=== PATIENT | male | born 1950 | race African-American/Black ===

== ENCOUNTER 2022-08-18 11:45 | Inpatient (IN) | payer MEDICARE ==
[2022-08-18 12:46] LABS: #Eosinphils 0.1 thou/uL (0.0-0.7); #Lymphocytes 1.6 thou/uL (1.20-3.40); #Monocytes 0.9 thou/uL (0.11-0.59); #Neutrophils 4.9 thou/uL (1.40-6.50); %Basophils 0.2 % (0.0-1.0); %Eosinophils 1.7 % (0.0-10.0); %Lymphocytes 21.1 % (21.0-51.0); %Monocytes 12.4 % (0.0-10.0); %Neutrophils 64.8 % (42.0-75.0); Hemoglobin 14.3 g/dL (14.0-18.0); Mean Corpuscular HGB CONC 31.8 g/dL (32.0-36.0); Mean Corpuscular Hemoglobin 29.6 pg (27.0-31.0); Mean Corpuscular Volume 93.2 fl (78.0-98.0); Mean Platelet Volume 8.1 fL (7.4-10.4); Platelet Count 168 10x3/uL (130-400); RBC Distribution Width 12.1 % (11.5-14.5); Red Blood Cell (RBC) Count 4.84 mill/uL (4.70-6.10); White Blood Cell (WBC) Count 7.6 10x3/uL (4.8-10.8)
[2022-08-18 13:25] LABS: ALT (SGPT) 17 U/L (8-55); AST (SGOT) 21 U/L (5-34); Albumin 3.8 g/dL (3.4-4.8); Alkaline Phosphatase 78 U/L (40-110); Anion Gap 11 mmol/L (10-20); BUN (Urea Nitrogen) 26 mg/dL (8.4-25.7); Bilirubin, Total 0.6 mg/dL (0.2-1.2); Calc. Creatinine Clearance 0 mL/min (70-130); Calcium 10.6 mg/dL (7.8-10.44); Carbon Dioxide 25 mmol/L (23-31); Chloride 104 mmol/L (98-107); Estimated GFR 34; Globulin 3.7 g/dL (2.4-3.5); Glucose 108 mg/dL (80-115); Lipase 120 U/L (8-78); Potassium 4.9 mmol/L (3.5-5.1); Protein, Total 7.5 g/dL (5.8-8.1); Sodium 135 mmol/L (136-145)
[2022-08-18] MEDS ORDERED: Fentanyl 100 MCG/2 ML VIAL ONE (14:49)
[2022-08-18] MEDS ORDERED: Ondansetron PF 4 MG/2 ML Vial ONE (14:49)
[2022-08-18] MEDS ORDERED: Cefepime 2 GM VIAL ONE (15:13)
[2022-08-18] MEDS ORDERED: Vancomycin 1 GM/200 ML (FROZEN) BAG ONE (16:07)
[2022-08-18 16:56] LABS: Magnesium 1.9 mg/dL (1.6-2.6); Phosphorus 2.5 mg/dL (2.3-4.7)
[2022-08-18] MEDS: Famotidine 20 MG TAB PO SCH (20:08)
[2022-08-18] MEDS: cloNIDine 0.1 MG TAB PO SCH (20:08)
[2022-08-18] MEDS: Lactated Ringer's 1,000 ML IV SCH (20:08)
[2022-08-18] MEDS: Heparin 5,000 UNITS/ML VIAL SC SCH (20:09)
[2022-08-18 20:44] VITALS: BMI 39.7
[2022-08-18] MEDS ORDERED: cloNIDine 0.1 MG TAB PO SCH (21:00)
[2022-08-18] MEDS ORDERED: Vancomycin 1 GM in Premix Bag 1 BAG IVPB SCH (21:30)
[2022-08-18] MEDS ORDERED: Sodium Chloride 0.65% Nasal 44 ML BOT EA NARE PRN (22:26)
[2022-08-18] MEDS ORDERED: Ondansetron PF 4 MG/2 ML Vial IVP PRN (22:35)
[2022-08-18] MEDS ORDERED: Ondansetron ODT 4 MG TAB PO PRN (22:35)
[2022-08-18] MEDS ORDERED: Ondansetron PF 4 MG/2 ML Vial IVP SCH (22:45)
[2022-08-18] MEDS: Loratadine 10 MG TAB PO PRN (22:45)
[2022-08-18] MEDS: Morphine 2 MG/ML VIAL SLOW IVP PRN (22:48)
[2022-08-19] MEDS: Cefepime 1 GM in Sodium Chloride 0.9% 100 ML IVPB SCH ×2 (02:46→14:25)
[2022-08-19] MEDS: Lactated Ringer's 1,000 ML IV SCH ×3 (02:46→14:28)
[2022-08-19 04:08] LABS: Creatinine, Urine 54.17 mg/dL (63-166)
[2022-08-19 06:33] LABS: #Eosinphils 0.1 thou/uL (0.0-0.7); #Lymphocytes 1.7 thou/uL (1.20-3.40); #Monocytes 0.9 thou/uL (0.11-0.59); #Neutrophils 3.7 thou/uL (1.40-6.50); %Basophils 0.4 % (0.0-1.0); %Eosinophils 1.8 % (0.0-10.0); %Monocytes 14.5 % (0.0-10.0); %Neutrophils 57.3 % (42.0-75.0); Hemoglobin 13.5 g/dL (14.0-18.0); Mean Corpuscular HGB CONC 32.2 g/dL (32.0-36.0); Mean Corpuscular Hemoglobin 30.1 pg (27.0-31.0); Mean Corpuscular Volume 93.7 fl (78.0-98.0); Mean Platelet Volume 7.8 fL (7.4-10.4); Platelet Count 153 10x3/uL (130-400); White Blood Cell (WBC) Count 6.4 10x3/uL (4.8-10.8)
[2022-08-19 06:38] LABS: Hemoglobin A1c 6.2 % (4.0-6.0)
[2022-08-19 06:57] LABS: ALT (SGPT) 16 U/L (8-55); AST (SGOT) 24 U/L (5-34); Albumin 3.3 g/dL (3.4-4.8); Alkaline Phosphatase 70 U/L (40-110); Anion Gap 10 mmol/L (10-20); BUN (Urea Nitrogen) 20 mg/dL (8.4-25.7); Bilirubin, Total 0.7 mg/dL (0.2-1.2); Calc. Creatinine Clearance 71 mL/min (70-130); Calcium 9.9 mg/dL (7.8-10.44); Carbon Dioxide 24 mmol/L (23-31); Cardiac Risk 2.9 (Less than 4.5); Chloride 106 mmol/L (98-107); Cholesterol 89 mg/dl (< 200 Desired); Estimated GFR 40; Globulin 3.7 g/dL (2.4-3.5); Glucose 90 mg/dL (80-115); HDL Cholesterol 31 mg/dL (>60 Neg Risk); LDL Cholesterol, Calculated 46 mg/dL; Lipase 36 U/L (8-78); Potassium 4.4 mmol/L (3.5-5.1); Sodium 136 mmol/L (136-145); Triglycerides 62 mg/dL (Less than 150)
[2022-08-19] MEDS: Carvedilol 25 MG TAB PO SCH (08:48)
[2022-08-19] MEDS: Amlodipine 10 MG TAB PO SCH (08:48)
[2022-08-19] MEDS: Heparin 5,000 UNITS/ML VIAL SC SCH ×3 (08:49→21:12)
[2022-08-19] MEDS: cloNIDine 0.1 MG TAB PO SCH ×2 (08:49→21:11)
[2022-08-19] MEDS: Famotidine 20 MG TAB PO SCH (21:11)
[2022-08-19] MEDS: Loratadine 10 MG TAB PO PRN (21:11)
[2022-08-19] MEDS: VANCOMYCIN 1.75 GM/500 ML BAG 1.75 GM in Premix Bag 1 BAG IVPB SCH (21:12)
[2022-08-19] MEDS: Morphine 2 MG/ML VIAL SLOW IVP PRN (21:19)
[2022-08-20 00:14] LABS: Bacteria/HPF None Seen HPF (None Seen); Bilirubin Negative (Negative); Blood, Urine Negative (Negative); CAUTI Indications for Culture Pelvic or flank pain; Clarity Clear (Clear); Glucose, Urine (Dipstick) Normal (Negative); Ketone, Urine Negative (Negative); Leukocyte Negative Leu/uL (Negative); Nitrite Negative (Negative); Protein, Urine (Dipstick) Negative (Neg-Trace); RBC/HPF 0-3 HPF (0-3); Specific Gravity, Urine 1.011 (1.002-1.036); Squamous Epithelial 0-3 HPF (0-3); Urobilinogen Normal mg/dL (Less than 2); WBC/HPF 0-3 HPF (0-3); pH, Urine 5.5 (5.0-9.0)
[2022-08-20 00:16] LABS: Urine Culture Reflex No No
[2022-08-20] MEDS: Cefepime 1 GM in Sodium Chloride 0.9% 100 ML IVPB SCH ×2 (02:05→15:09)
[2022-08-20] MEDS: Lactated Ringer's 1,000 ML IV SCH ×2 (04:52→08:04)
[2022-08-20 07:33] LABS: Hemoglobin 13.6 g/dL (14.0-18.0); Mean Corpuscular HGB CONC 32.3 g/dL (32.0-36.0); Mean Corpuscular Hemoglobin 30.4 pg (27.0-31.0); Mean Corpuscular Volume 94.3 fl (78.0-98.0); Mean Platelet Volume 7.8 fL (7.4-10.4); Platelet Count 156 10x3/uL (130-400); RBC Distribution Width 11.9 % (11.5-14.5); Red Blood Cell (RBC) Count 4.48 mill/uL (4.70-6.10); White Blood Cell (WBC) Count 6.5 10x3/uL (4.8-10.8)
[2022-08-20 07:35] LABS: ALT (SGPT) 17 U/L (8-55); AST (SGOT) 28 U/L (5-34); Albumin 3.3 g/dL (3.4-4.8); Alkaline Phosphatase 73 U/L (40-110); Anion Gap 12 mmol/L (10-20); BUN (Urea Nitrogen) 19 mg/dL (8.4-25.7); Bilirubin, Total 0.6 mg/dL (0.2-1.2); Calc. Creatinine Clearance 72 mL/min (70-130); Calcium 9.8 mg/dL (7.8-10.44); Carbon Dioxide 24 mmol/L (23-31); Chloride 105 mmol/L (98-107); Estimated GFR 40; Globulin 3.8 g/dL (2.4-3.5); Glucose 91 mg/dL (80-115); Potassium 4.1 mmol/L (3.5-5.1); Protein, Total 7.1 g/dL (5.8-8.1); Sodium 137 mmol/L (136-145)
[2022-08-20] MEDS: Heparin 5,000 UNITS/ML VIAL SC SCH ×3 (08:05→21:16)
[2022-08-20] MEDS: Amlodipine 10 MG TAB PO SCH (08:05)
[2022-08-20] MEDS: cloNIDine 0.1 MG TAB PO SCH ×2 (08:05→21:16)
[2022-08-20] MEDS: Carvedilol 25 MG TAB PO SCH (08:05)
[2022-08-20 08:20] LABS: MDiff Complete? YES
[2022-08-20 08:21] LABS: Eosinophils 3 % (0-10); Lymphocytes 28 % (21-51); Monocytes 4 % (0-10); Neutrophil 64 % (42-75); Platelet Morphology Comment Appears Adequate
[2022-08-20] MEDS ORDERED: Docusate Sodium 10 MG/1 ML Oral Suspension PO PRN (12:42)
[2022-08-20] MEDS ORDERED: hydrALAZINE 25 MG TAB PO SCH (21:00)
[2022-08-20] MEDS: VANCOMYCIN 1.75 GM/500 ML BAG 1.75 GM in Premix Bag 1 BAG IVPB SCH (21:15)
[2022-08-20] MEDS: Famotidine 20 MG TAB PO SCH (21:15)
[2022-08-21] MEDS: Cefepime 1 GM in Sodium Chloride 0.9% 100 ML IVPB SCH (02:56)
[2022-08-21 06:57] LABS: Anion Gap 13 mmol/L (10-20); BUN (Urea Nitrogen) 17 mg/dL (8.4-25.7); Calc. Creatinine Clearance 73 mL/min (70-130); Calcium 10.1 mg/dL (7.8-10.44); Carbon Dioxide 24 mmol/L (23-31); Chloride 105 mmol/L (98-107); Estimated GFR 41; Glucose 86 mg/dL (80-115); Potassium 4.3 mmol/L (3.5-5.1); Sodium 138 mmol/L (136-145)
[2022-08-21 06:58] LABS: Hemoglobin 14.4 g/dL (14.0-18.0); Lymphocytes 26 % (21-51); MDiff Complete? YES; Mean Corpuscular Volume 93.7 fl (78.0-98.0); Mean Platelet Volume 8.5 fL (7.4-10.4); Monocytes 14 % (0-10); Neutrophil 60 % (42-75); Platelet Count 160 10x3/uL (130-400); Platelet Morphology Comment Appears Adequate; RBC Morphology Normal; Red Blood Cell (RBC) Count 4.79 mill/uL (4.70-6.10); White Blood Cell (WBC) Count 5.8 10x3/uL (4.8-10.8)
[2022-08-21] MEDS: Amlodipine 10 MG TAB PO SCH (08:53)
[2022-08-21] MEDS: Doxazosin Mesylate 4 MG TAB PO SCH (08:53)
[2022-08-21] MEDS: Spironolactone 25 MG TAB PO SCH (08:54)
[2022-08-21] MEDS: Heparin 5,000 UNITS/ML VIAL SC SCH ×3 (08:54→20:49)
[2022-08-21] MEDS: cloNIDine 0.1 MG TAB PO SCH ×2 (08:54→20:49)
[2022-08-21] MEDS: Carvedilol 25 MG TAB PO SCH (08:54)
[2022-08-21] MEDS ORDERED: Non-Formulary Item 1 EACH (Doxazosin Mesylate [Cardura] 8 MG Tablet) PO SCH (09:00)
[2022-08-21] MEDS ORDERED: hydrALAZINE 25 MG TAB PO SCH (09:00)
[2022-08-21] MEDS ORDERED: Cefdinir 300 MG CAP PO SCH ×2 (12:59→21:00)
[2022-08-21] MEDS ORDERED: Doxycycline 100 MG CAP PO SCH ×2 (12:59→21:00)
[2022-08-21] MEDS: Doxycycline 100 MG CAP PO SCH (20:49)
[2022-08-21] MEDS: Famotidine 20 MG TAB PO SCH (20:49)
[2022-08-22 07:15] LABS: #Eosinphils 0.2 thou/uL (0.0-0.7); #Lymphocytes 1.6 thou/uL (1.20-3.40); #Monocytes 0.8 thou/uL (0.11-0.59); %Basophils 0.2 % (0.0-1.0); %Eosinophils 3.4 % (0.0-10.0); %Lymphocytes 28.6 % (21.0-51.0); %Neutrophils 53.8 % (42.0-75.0); Hemoglobin 14.5 g/dL (14.0-18.0); Mean Corpuscular HGB CONC 31.8 g/dL (32.0-36.0); Mean Corpuscular Hemoglobin 29.7 pg (27.0-31.0); Mean Corpuscular Volume 93.6 fl (78.0-98.0); Mean Platelet Volume 8.1 fL (7.4-10.4); Platelet Count 159 10x3/uL (130-400); Red Blood Cell (RBC) Count 4.86 mill/uL (4.70-6.10); White Blood Cell (WBC) Count 5.5 10x3/uL (4.8-10.8)
[2022-08-22 07:35] LABS: Anion Gap 12 mmol/L (10-20); BUN (Urea Nitrogen) 18 mg/dL (8.4-25.7); Calc. Creatinine Clearance 73 mL/min (70-130); Calcium 10.5 mg/dL (7.8-10.44); Carbon Dioxide 26 mmol/L (23-31); Chloride 104 mmol/L (98-107); Estimated GFR 41; Glucose 101 mg/dL (80-115); Potassium 4.3 mmol/L (3.5-5.1); Sodium 138 mmol/L (136-145)
[2022-08-22 07:39] VITALS: TEMP 97.5
[2022-08-22] MEDS: cloNIDine 0.1 MG TAB PO SCH (07:54)
[2022-08-22] MEDS: Doxycycline 100 MG CAP PO SCH (07:54)
[2022-08-22] MEDS: Spironolactone 25 MG TAB PO SCH (07:55)
[2022-08-22] MEDS: Heparin 5,000 UNITS/ML VIAL SC SCH (07:55)
[2022-08-22] MEDS: Doxazosin Mesylate 4 MG TAB PO SCH (07:55)
[2022-08-22] MEDS: Amlodipine 10 MG TAB PO SCH (07:55)
[2022-08-22] MEDS: Carvedilol 25 MG TAB PO SCH (07:55)
[2022-08-22 07:59] VITALS: BP 156/98
[2022-08-22] MEDS ORDERED: FLU VACC QS2022-23(65YR UP)/PF 240 MCG/0.7 ML SYRINGE IM ONE (09:00)
== END 2022-08-22 14:13 | disposition home or self-care (01) | DRG 602 ==
LOC: SUATTDRO 11:45 → ERS 11:45 → T4-B 18:14
PROVIDERS: ADMIT Internal Medicine; ATTEND Internal Medicine
DX: L03.115 Cellulitis of right lower limb (principal); K85.90 Acute pancreatitis without necrosis or infection, unspecified; N17.9 Acute kidney failure, unspecified; Z20.822 Contact with and (suspected) exposure to COVID-19; I12.9 Hypertensive chronic kidney disease with stage 1 through stage 4 chronic kidney disease, or unspecified chronic kidney disease; N18.9 Chronic kidney disease, unspecified; E66.01 Morbid (severe) obesity due to excess calories; N28.89 Other specified disorders of kidney and ureter; D17.9 Benign lipomatous neoplasm, unspecified; N40.0 Benign prostatic hyperplasia without lower urinary tract symptoms; Z79.899 Other long term (current) drug therapy; Z68.39 Body mass index [BMI] 39.0-39.9, adult; Z80.0 Family history of malignant neoplasm of digestive organs
CPT/HCPCS: 36415; 71045; 74018; 74176; 76770; 80048; 80053; 80061; 80202; 81001; 82570; 83036; 83690; 83735; 83880; 84100; 84300; 84484; 85025; 87040; 93005; 93306; 93970; 94760; 96365; 96366; 96367; 96375; 97139; J0692; J1644; J2272; J2405; J3010; J3370; J3370-JW; J3490; J7120; Q0162; U0003; U0005

== ENCOUNTER 2023-07-08 17:00 | Outpatient (CLI) | payer MEDICARE | END 2023-07-08 17:01 | disposition home or self-care (01) | LOC: SLEEPLAB 17:00 | PROVIDERS: ATTEND Physician Assistant | DX: G47.33 Obstructive sleep apnea (adult) (pediatric) (principal); R53.83 Other fatigue; E66.9 Obesity, unspecified; R06.83 Snoring; I10 Essential (primary) hypertension; G47.00 Insomnia, unspecified; G47.10 Hypersomnia, unspecified; Z68.41 Body mass index [BMI] 40.0-44.9, adult | CPT/HCPCS: 95811 ==